=== PATIENT | female | born 1975 | race Two or more races ===

== ENCOUNTER → 2018-07-23 | Day surgery (SDC) | payer OTHER ==
[~2018-07-23] MED LIST: IV RINGERS,LACTATED 500ML 500 ML IV ONE; PROPOFOL 20 ML IV ONE; PROPOFOL 40 ML IV ONE
[2018-07-23 17:45] VITALS: BP 128/78
--- NOTE | 2018-07-25 16:08 | PATHOLOGY ---
[facility] Accession Number: [id number] . 01 Material submitted: . BIOPSY RECTAL POLYPS . 01 Clinical history: . Diffuse abdominal pain . 02 Diagnosis: Rectum, biopsy: - Hyperplastic polyp, four fragments. . (SKM:cyrus; 07/25/2018) MBR/07/25/2018 . 02 Electronically signed: . Rosales Valderrama MD, Pathologist NPI- [id number] . 01 Gross description: . Received in formalin labeled "Delgadillo, Kristy, BX rectal polyps," are 3 segments of cuevas soft tissue measuring 0.5 x 0.6 x 0.2 cm in aggregate dimensions and ranging from 0.3 to 0.4 cm in maximum dimension. The specimen is submitted entirely in cassette A1. (TSD; 07/24/2018) TOB/TOB . 02 Pathologist provided ICD-10: K62.1 . 02 CPT . 973074 Specimen Comment: A courtesy copy of this report has been sent to Specimen Comment: [phone], . Specimen Comment: Report sent to / DR RANGEL Specimen Comment: A duplicate report has been generated due to demographic updates. Performed at: 01 [facility] [address], [place] [id number] MD Ulysses Powers MD Phone: [phone] Performed at: 02 [facility] [address] [place], [place] [id number] MD Yony Marquis MD Phone: [phone]
== END | disposition home or self-care (01) ==
LOC: SURG 16:29
PROVIDERS: ATTEND Internal Medicine Gastroenterology
DX: K62.1 Rectal polyp (principal); K64.0 First degree hemorrhoids; K29.50 Unspecified chronic gastritis without bleeding; F32.9 Major depressive disorder, single episode, unspecified; Z72.89 Other problems related to lifestyle; F17.200 Nicotine dependence, unspecified, uncomplicated; Z79.899 Other long term (current) drug therapy; Z98.890 Other specified postprocedural states
CPT/HCPCS: 43235; 45380; J2704; 88305

== ENCOUNTER 2018-10-08 10:49 | Day surgery (SDC) | payer OTHER ==
[~2018-10-08] VITALS: Ht 170.2 cm; Wt 78.5 kg
[~2018-10-08 10:49] MED LIST changes: +BUPIVAC MPF-EPI 0.5%-1:200000 30 ML VIAL. ONE; +HYDROmorphone 2 MG/ML VIAL IV PRN; +IOHEXOL 300 MG/ML 100ML VIAL. ONE; +IV RINGERS,LACTATED 1000ML 1,000 ML IV SCH; -IV RINGERS,LACTATED 500ML 500 ML IV ONE; +LIDOCAINE 1% PF 2 ML VIAL. ID PRN; +MORPHINE SULFATE 4 MG/ML VIAL. IV PRN; +ONDANSETRON PF 4 MG/2 ML VIAL. IV PRN; -PROPOFOL 20 ML IV ONE; -PROPOFOL 40 ML IV ONE; +SURGICEL HEMOSTAT 4X8 EACH. ONE; +fentaNYL PF VIAL 100 MCG/2 ML VIAL IV PRN
[2018-10-08] MEDS ORDERED: CYAN-25 PO (11:13)
[2018-10-08] MEDS ORDERED: BUPR150T8 PO (11:13)
[2018-10-08] MEDS ORDERED: MULT1TAB52 PO (11:13)
[2018-10-08] MEDS ORDERED: ROCURONIUM 50 MG/5 ML VIAL. ONE (11:29)
[2018-10-08] MEDS ORDERED: fentaNYL PF VIAL 250 MCG/5 ML VIAL ONE (11:30)
[2018-10-08] MEDS ORDERED: MIDAZOLAM HCL/PF 2 MG/2 ML VIAL. ONE (11:30)
--- NOTE | 2018-10-08 11:31 | PDOC1 ---
History and Physical Date of Admission Date of Admission DATE: 10/08/18 TIME: 11:27 Identification/Chief Complaint Chief Complaint Abdominal pain Source Source: Patient History of Present Illness History of Present Illness 42-year-old female with four-month history of right upper quadrant abdominal pain radiating to her back generally at night. Ultrasound showed gallstones and HIDA scan showed abnormal filling of the gallbladder. Past Medical History GI: GERD Psych: Depression Past Surgical History Past Surgical History: Other (breast augmentation) Family History Family History: No Significant Social History Smoke: No ALCOHOL: none Drugs: None Current Medications Current Medications Current Medications Ondansetron HCl (Zofran) 4 mg PRN Q6HRS PRN IV NAUSEA/VOMITING; Start 10/08/18 at 07:00; Stop 10/09/18 at 06:59 Fentanyl Citrate (Fentanyl 2ml Vial) 25 mcg PRN Q5MIN PRN IV MILD PAIN; Start 10/08/18 at 07:00; Stop 10/09/18 at 06:59 Fentanyl Citrate (Fentanyl 2ml Vial) 50 mcg PRN Q5MIN PRN IV MODERATE TO SEVERE PAIN; Start 10/08/18 at 07:00; Stop 10/09/18 at 06:59 Morphine Sulfate (Morphine Sulfate) 1 mg PRN Q10MIN PRN IV SEVERE PAIN; Start 10/08/18 at 07:00; Stop 10/09/18 at 06:59 Ringer's Solution 1,000 ml @ 30 mls/hr Q24H IV Last administered on 10/08/18at 11:27; Start 10/08/18 at 07:00; Stop 10/08/18 at 18:59 Lidocaine HCl (Xylocaine-Mpf 1% 2ml Vial) 2 ml PRN 1X PRN ID PRIOR TO IV START ; Start 10/08/18 at 07:00; Stop 10/09/18 at 06:59 Hydromorphone HCl (Dilaudid) 0.5 mg PRN Q10MIN PRN IV SEV PAIN, Second choice; Start 10/08/18 at 07:00; Stop 10/09/18 at 06:59 Prochlorperazine Edisylate (Compazine) 5 mg PACU PRN PRN IV NAUSEA, MRX1; Start 10/08/18 at 07:00; Stop 10/09/18 at 06:59 Cefazolin Sodium/ Dextrose 50 ml @ 100 mls/hr 1X PREOP PRN IV PRIOR TO PROCEDURE; Start 10/08/18 at 06:00; Stop 10/08/18 at 18:00 Bupivacaine HCl/ Epinephrine Bitart (Sensorcain-Mpf Epi 0.5%-1:514290) 30 ml STK -MED ONCE .ROUTE ; Start 10/08/18 at 10:41; Stop 10/08/18 at 10:42; Status DC Iohexol (Omnipaque 300 Mg/ml) 100 ml STK-MED ONCE .ROUTE ; Start 10/08/18 at 10: 41; Stop 10/08/18 at 10:42; Status DC Cellulose (Surgicel Hemostat 4x8) 1 each STK-MED ONCE .ROUTE ; Start 10/08/18 at 10:41; Stop 10/08/18 at 10:43; Status DC Active Scripts Active Reported Vitamin B-12 (Cyanocobalamin (Vitamin B-12)) 1,000 Mcg Tablet 1,000 Mcg PO DAILY Multivitamins (Multivitamin) 1 Each Tablet 1 Each PO DAILY Wellbutrin Sr (Bupropion Hcl) 150 Mg Tablet.er 150 Mg PO BID Allergies Allergies: Coded Allergies: No Known Drug Allergies (Unverified , 10/08/18) ROS Gastrointestinal: Yes Abdominal Pain Physical Exam General: Alert, Oriented X3, Cooperative, mild distress HEENT: Atraumatic, PERRLA, EOMI Lungs: Clear to auscultation, Normal air movement Heart: RRR, no murmurs Abdomen: Normal bowel sounds, Soft, Other (palpation right upper quadrant) Rectal Exam: not examined Extremities: No edema Skin: No significant lesion Neuro: Normal speech Vitals Vitals Vital Signs Date Time Temp Pulse Resp B/P (MAP) Pulse Ox O2 Delivery O2 Flow Rate FiO2 10/08/18 11:13 98.7 93 16 133/90 97 Room Air 98.7 VTE Prophylaxis Ordered VTE Prophylaxis Devices: Yes VTE Pharmacological Prophylaxi: Contraindicated Assessment/Plan Assessment/Plan Cholecystitis plan laparoscopic cholecystectomy ARRON SIFUENTES MD Oct 08, 2018 11:31
[2018-10-08] MEDS ORDERED: PROPOFOL 20 ML IV ONE (12:26)
[2018-10-08] MEDS ORDERED: DEXAMETHASONE SOD PHOS 20 MG/5 ML VIAL. ONE (12:26)
[2018-10-08] MEDS ORDERED: NEOSTIGMINE 10 MG/10 ML VIAL. ONE (12:26)
[2018-10-08] MEDS ORDERED: ONDANSETRON PF 4 MG/2 ML VIAL. ONE (12:26)
[2018-10-08] MEDS ORDERED: GLYCOPYRROLATE 1 MG/5 ML VIAL. ONE (12:26)
[2018-10-08] MEDS ORDERED: LIDOCAINE 2% PF 5 ML VIAL. ONE (12:26)
[2018-10-08] MEDS ORDERED: SEVOFLURANE 61 TO 120 MINUTES. IH ONE (12:27)
--- NOTE | 2018-10-08 12:35 | PDOC4 ---
Operative Note Operative Note Date: 10/08/2018 Preoperative diagnosis: Chronic cholecystitis Postoperative diagnosis: Same Procedure: Laparoscopic cholecystectomy Surgeon: Iván Specimen: Gallbladder Dictation: Patient is 42-year-old female with right upper quadrant abdominal pain and ultrasound showing gallstones and an abnormal HIDA scan. The procedure of laparoscopic cholecystectomy was explained to the patient in detail risk benefits were also discussed including bleeding infection injury to intra- abdominal contents possibly necessitating further or open operations. The patient seemed to understand and gave verbal and written consent had the procedure performed. The patient was taken to the operating room placed in supine position general anesthesia was initiated once patient was asleep and intubated her abdomen was prepped and draped in usual sterile fashion using ChloraPrep and area just below the umbilicus was injected with quarter percent Marcaine with epinephrine incision was made 11 blade scalpel and there is needle was placed within the abdomen creating pneumoperitoneum once this was complete 11 mm port was placed and a 5 mm camera was placed within the abdomen. The abdomen was inspected no other added maladies were noted at this point a 5 mm port was placed in the epigastrium and two 5 mm ports were placed in the right upper abdomen all under direct visualization. The dome of the gallbladder was grasped and retracted cephalad the infundibulum of the gallbladder was grasped retracted laterally exposing the triangle adherent tissues taken down with blunt dissection exposing the cystic duct and cystic artery both were doubly clipped and transected the gallbladder was taken off the liver with hook electrocautery was then Endo Catch bag and removed from the umbilicus the right upper quadrant was irrigated and suctioned dry. The pneumoperitoneum was reduced all ports removed the fascial defect at the umbilicus was closed with [id number] 0 Vicryl suture and the skin is reapproximate all port sites for septic Monocryl Mastisol Steri-Strips and Band-Aids were applied as dressings. The patient was awakened and extubated in the operating room taken to recovery in stable condition all sponge instrument needle counts listed as correct estimated blood loss 10 mL. ARRON SIFUENTES MD Oct 08, 2018 12:35
--- NOTE | 2018-10-08 12:36 | DISCH ---
DISCHARGE INSTRUCTIONS Condition on Discharge Condition on Discharge: Stable Activity After Discharge Activity Instructions for Disc: Avoid exertion Other activity instructions: no lifting greater than 20 pounds for 2 weeks Diet after Discharge Diet after Discharge: Low Fat Wound Incision Care Other wound/incision instructi: May shower in 24 hours Contacting the after DC Call your doctor for: If your condition worsens Follow-Up Follow up with: Dr. Sifuentes in 2 weeks ARRON SIFUENTES MD Oct 08, 2018 12:36
[2018-10-08] MEDS ORDERED: oxyCODONE/APAP 5/325 1 TAB TABLET PO ONE ×2 (12:45)
[2018-10-08] MEDS: PROCHLORPERAZINE 10 MG/2 ML VIAL. IV PRN ×2 (13:05→13:20)
[2018-10-08] MEDS ORDERED: OXYC1TAB15 PO (13:11)
[2018-10-08 13:23] LABS: U PREG PATIENT NEGATIVE (NEG)
[2018-10-08 14:30] VITALS: BP 149/68
--- NOTE | 2018-10-10 15:10 | PATHOLOGY ---
[facility] Accession Number: [id number] . 01 Material submitted: . GALLBLADDER AND CONTENTS . 01 Clinical history: . Cholecystitis. . 02 Diagnosis: Gallbladder, laparoscopic cholecystectomy: - Cholelithiasis. - Chronic and focal slight acute cholecystitis. (JPM:[place]; 10/10/2018) QMS/10/10/2018 . 02 Comment: There is no evidence of malignancy. . 02 Electronically signed: . Yony Marquis MD, Pathologist NPI- [id number] . 01 Gross description: . Received in formalin labeled "Kristy Delgadillo, gallbladder and contents" is an 8.2 x 3.5 x 3.0 cm pink-cuevas gallbladder. The specimen is opened to reveal numerous yellow-cuevas multifaceted calculi filling the entire gallbladder lumen and measuring in aggregate 5.5 x 4.0 x 2.5 cm. The calculi range from 0.1-1.7 cm in greatest dimension. The gallbladder mucosa is pink-cuevas, smooth, and trabeculated, with an average wall thickness of 0.2 cm. No polyps or masses are identified. Sap Bpc Developer sections of the fundus and body and the cystic duct margin are submitted in cassette A1. ([facility]; 10/08/2018) SYC/SYC . 02 Pathologist provided ICD-10: K80.12 . 02 CPT . 815654 Specimen Comment: A courtesy copy of this report has been sent to Specimen Comment: [phone], . Specimen Comment: Report sent to / DR RANGEL Specimen Comment: A duplicate report has been generated due to demographic updates. Performed at: 01 [facility] [address] [place] [address] [address], [place] [id number] MD Ulysses Powers MD Phone: [phone] Performed at: [address] [id number] MD Yony Marquis MD Phone: [phone]
== END 2018-10-08 14:32 | disposition home or self-care (01) ==
LOC: SURG 10:49
PROVIDERS: ATTEND Surgery
DX: K80.12 Calculus of gallbladder with acute and chronic cholecystitis without obstruction (principal); K21.9 Gastro-esophageal reflux disease without esophagitis; F32.9 Major depressive disorder, single episode, unspecified; Z98.890 Other specified postprocedural states; Z79.899 Other long term (current) drug therapy
CPT/HCPCS: 47562; 81025; A7015; J0696; J0780; J1100; J2001; J2250; J2405; J2704; J2710; J3010; J3490; J7030; J7120; 88304; Q9967